=== PATIENT | male | born 1955 | race Caucasian/White ===

== ENCOUNTER 2021-01-26 10:50 | Day surgery (SDC) | payer MEDICARE ==
[~2021-01-26] VITALS: Ht 175.3 cm; Wt 78.0 kg
[2021-01-26 11:51] VITALS: BP 120/93
[2021-01-26 11:52] LABS: BASOPHILS % (AUTO) 1 % (0-1); EOSINOPHILS % (AUTO) 2 % (1-7); LYMPHOCYTES % (AUTO) 33 % (22-44); MEAN CORPUSCULAR HEMOGLOBIN 33.3 pg (27.5-34.5); MEAN CORPUSCULAR HGB CONC 34.9 g/dL (33.2-36.2); MEAN PLATELET VOLUME 8.2 fL (7.4-10.4); MONOCYTES % (AUTO) 10 % (2-9); NEUTROPHILS % (AUTO) 54 % (42-75); PLATELET COUNT 271 x10^3/uL (130-400); RED BLOOD COUNT 4.71 x10^6/uL (4.38-5.82); RED CELL DISTRIBUTION WIDTH 13.6 % (9.4-14.8)
[2021-01-26 12:04] LABS: ANION GAP 13 mmol/L (5-15); CALCIUM 9.2 mg/dL (8.5-10.1); CHLORIDE 118 mmol/L (98-107); CREATININE 0.79 mg/dL (0.7-1.3)
[2021-01-26] MEDS ORDERED: HYDR12.575 PO (12:14)
[2021-01-26] MEDS ORDERED: ATOR40TA78 PO (12:14)
[2021-01-26] MEDS ORDERED: AMLO2.5T2 PO (12:14)
[2021-01-26] MEDS ORDERED: HYDR-3237 PO (12:14)
[2021-01-26] MEDS ORDERED: METF500T17 PO (12:14)
[2021-01-26] MEDS ORDERED: LOSA100T14 PO (12:14)
[2021-01-26] MEDS ORDERED: ASPI81TA45 PO (12:14)
[2021-01-26 12:28] LABS: INTERNATIONAL NORMALIZED RATIO 0.98 (0.93-1.1); PROTHROMBIN TIME 10.5 Seconds (9.6-11.5)
[2021-01-26] MEDS ORDERED: TICAGRELOR 90 MG TABLET ONE (13:20)
[2021-01-26] MEDS ORDERED: FENTANYL PF 100 MCG/2ML ONE ×3 (13:20→15:19)
[2021-01-26] MEDS ORDERED: HEPARIN 1,000 UNITS/ML, 10ML ONE (13:20)
[2021-01-26] MEDS ORDERED: MIDAZOLAM 1 MG/ML, 5ML ONE (13:20)
[2021-01-26] MEDS ORDERED: VERAPAMIL 2.5 MG/ML, 2ML ONE (13:20)
[2021-01-26] MEDS ORDERED: BIVALIRUDIN 250 MG ONE (13:20)
[2021-01-26] MEDS ORDERED: LIDOCAINE-MPF 1%, 5ML ONE (13:20)
[2021-01-26] MEDS: FENTANYL PF 100 MCG/2ML IVPush PRN ×4 (13:44→19:34)
[2021-01-26] MEDS ORDERED: PLEASE ENTER ALLERGIES MC SCH (14:00)
[2021-01-26] MEDS ORDERED: SODIUM CHLORIDE 0.9% 1,000 ML IV SCH (16:30)
[2021-01-26 19:35] VITALS: BP 154/94
== END 2021-01-26 21:15 | disposition home or self-care (01) ==
LOC: CACL 10:50 → 5SO 16:28 → CACL 21:15
PROVIDERS: ATTEND Internal Medicine Cardiovascular Disease
DX: R07.9 Chest pain, unspecified (principal); I25.10 Atherosclerotic heart disease of native coronary artery without angina pectoris; I25.82 Chronic total occlusion of coronary artery; I77.819 Aortic ectasia, unspecified site; I34.0 Nonrheumatic mitral (valve) insufficiency; I25.2 Old myocardial infarction; I10 Essential (primary) hypertension; E11.9 Type 2 diabetes mellitus without complications; E78.2 Mixed hyperlipidemia; Z79.82 Long term (current) use of aspirin; Z79.84 Long term (current) use of oral hypoglycemic drugs; Z79.899 Other long term (current) drug therapy; Z87.891 Personal history of nicotine dependence
CPT/HCPCS: 36415; 80048; 85025; 85610; 93306; 93458; 99156; C1769; C1894; J1644; J2250; J3010; Q9967; G0378; J0583